=== PATIENT | female | born 1955 | race Hispanic/Latino ===

== ENCOUNTER → 2019-05-07 | Outpatient (CLI) | payer OTHER ==
--- NOTE | 2019-05-07 15:17 | Diagnostic Imaging Report ---
EXAM: US ABDOMEN COMPLETE DATE: 05/07/2019 9:17 AM INDICATION: Abdominal pain COMPARISON: None TECHNIQUE: Transverse and longitudinal yanez scale and color doppler sonographic images of the upper abdomen were obtained. FINDINGS: There is no evidence of fluid or masses seen in the area of clinical concern in the right lower quadrant. LIVER 12.9 cm in the right midclavicular line. Normal echogenicity of the liver with normal contour, no masses. SPLEEN 7.6 cm in maximum diameter. Normal echogenicity, no masses. GALLBLADDER No gallbladder wall thickening, distension, stone, or pericholecystic fluid. NEgative reported sonographic Caruso's sign. Gallbladder wall measures 0.2cm. There is a 4 mm nonmobile hyperechoic focus without posterior shadowing along the gallbladder wall without associated vascularity, possibly a polyp. BILE DUCTS No intra nor extra-hepatic biliary dilation. Common bile duct measures 0.2cm PANCREAS: Visualized portions are normal. RIGHT KIDNEY: 9.5 cm Echogenicity: Normal Collecting System: No hydronephrosis Stones: None Cyst/Mass: None LEFT KIDNEY: 10.9 cm Echogenicity: Normal Collecting System: No hydronephrosis Stones: None Cyst/Mass: None VESSELS: Aorta: Visualized portions are within normal size limits Inferior Vena Cava: Visualized portions are normal Main Portal Vein: 0.9 cm, normal size with hepatopetal flow. FREE FLUID: None IMPRESSION: No sonographic evidence of cholelithiasis or cholecystitis. Hyperechoic focus measuring 4 mm on the gallbladder wall without associated vascularity may represent a polyp. Signed by: Marlen Alves MD on 05/07/2019 3:13 PM
== END ==
LOC: US 09:09
PROVIDERS: ATTEND Family Medicine
DX: R10.9 Unspecified abdominal pain (principal); K82.9 Disease of gallbladder, unspecified
CPT/HCPCS: 76700